=== PATIENT | male | born 1960 | race Caucasian/White ===

== ENCOUNTER 2024-01-13 19:10 | Inpatient (IN) | payer OTHER, MEDICAID ==
[~2024-01-13] VITALS: Ht 182.9 cm; Wt 70.3 kg
[2024-01-13 19:10] VITALS: BP_SYST 145; PULSE 100; RESP 20; TEMP 98.6; O2SAT 95
[2024-01-13] MEDS ORDERED: iohexoL 350 mgI/mL, 100 ML INFUS..BTL IV ONE (19:27)
[2024-01-13 19:52] LABS: BASOPHILS # (AUTO) 0.1 K/uL (0.0-0.2); BASOPHILS % (AUTO) 0.4 % (0.0-2.0); HEMATOCRIT 44.8 % (36-54); HEMOGLOBIN 15.1 g/dL (14.0-18.0); LYMPHOCYTES # (AUTO) 0.6 K/uL (1.0-5.5); LYMPHOCYTES % (AUTO) 2.9 % (20.5-51.5); MEAN CORPUSCULAR HEMOGLOBIN 30 pg (27-31); MEAN CORPUSCULAR HGB CONC 34 % (32-36); MEAN CORPUSCULAR VOLUME 88 fL (79.0-98.0); MONOCYTES # (AUTO) 1.1 K/uL (0.0-1.0); MONOCYTES % (AUTO) 5.6 % (1.7-9.3); NEUTROPHILS # (AUTO) 18.5 K/uL (1.8-7.7); NEUTROPHILS % (AUTO) 91.1 % (40.0-70.0); PLATELET COUNT (AUTO) 375 K/uL (130-430); RED BLOOD CELL COUNT(AUTO) 5.07 MIL/uL (4.2-6.2); RED CELL DISTRIBUTION WIDTH 13.6 % (9.0-15.0); WHITE BLOOD COUNT (AUTO) 20.3 K/uL (4.8-10.8)
[2024-01-13 20:01] LABS: ANION GAP 10 (5-15); CALCIUM 10.9 mg/dL (8.4-11.0); CARBON DIOXIDE 25 mmol/L (23-29); CHLORIDE 103 mmol/L (98-107); CREATININE 2.58 mg/dL (0.55-1.30); GFR AFRICAN AMERICAN 33 mL/min (>90); POTASSIUM 4.1 mmol/L (3.5-5.1); SODIUM SERUM 138 mmol/L (136-145); UREA NITROGEN, BLOOD 45 mg/dL (8-21)
[2024-01-13 20:04] LABS: GFR NON AFRICAN-AMERICAN 27 mL/min (>90)
[2024-01-13 20:05] LABS: GLUCOSE 407 mg/dL (74-106)
[2024-01-13 20:17] LABS: HEMOGLOBIN A1C 9.06 % (<5.7)
[2024-01-13] MEDS: NACL 0.9% 1,000 ML IV ONE ×2 (20:26→21:13)
[2024-01-13 20:35] LABS: CHOLESTEROL 207 mg/dL (<200); HDL CHOLESTEROL 50 mg/dL (>45); TRIGLYCERIDES 94 mg/dL (30-150)
[2024-01-13] MEDS ORDERED: GUAI5LIQ13 (20:51)
[2024-01-13] MEDS ORDERED: SSNOVOLOG SUBCUT (20:51)
[2024-01-13] MEDS ORDERED: INSU300I10 (20:51)
[2024-01-13] MEDS ORDERED: ASPI-1077 PO (20:51)
[2024-01-13] MEDS ORDERED: OLAN5TAB3 PO (20:51)
[2024-01-13] MEDS ORDERED: SER25 PO (20:51)
[2024-01-13] MEDS ORDERED: ZIT250 PO (20:51)
[2024-01-13] MEDS ORDERED: DEPS125 PO (20:51)
[2024-01-13] MEDS ORDERED: INSU100V44 (20:51)
[2024-01-13] MEDS ORDERED: AMIO200T66 PO (20:51)
[2024-01-13] MEDS ORDERED: DOCU-144 PO (20:51)
[2024-01-13] MEDS ORDERED: LEVO150T PO (20:51)
[2024-01-13] MEDS: PIPERACILLIN/TAZO 3.375 GM in NS 50 ML IV ONE (21:11)
[2024-01-13] MEDS ORDERED: PIPERACILLIN/TAZOBACTAM 3.375 GM/VIAL (ZOSYN) IV ONE (21:13)
[2024-01-13 22:10] LABS: BILIRUBIN,URINE 1+ (NEGATIVE); BLOOD, URINE NEGATIVE (NEGATIVE); CLARITY/URINE CLEAR (CLEAR); COLOR,URINE YELLOW (YELLOW); GLUCOSE,URINE 3+ (NEGATIVE); KETONES,URINE 1+ (NEGATIVE); LEUKOCYTE ESTERASE ,URINE NEGATIVE (NEGATIVE); NITRITE, URINE NEGATIVE (NEGATIVE); PROTEIN URINE NEGATIVE (NEGATIVE); UROBILINOGEN,URINE 0.2 (0.2-1.0)
[2024-01-13 22:22] LABS: BARBITURATE, URINE NEGATIVE (NEG <=200); BENZODIAZEPINE, URINE NEGATIVE (NEG <=150); CANNABINOID, URINE NEGATIVE (NEG <=50); COCAINE, URINE NEGATIVE (NEG <=150); METHAMPHETAMINES SCREEN,URINE NEGATIVE (NEG <=500); OPIATE, URINE NEGATIVE (NEG <=100); PHENCYCLIDINE SCREEN,URINE NEGATIVE (NEG <=25); UR TRICYCLIC ANTIDEPRESSANTS POSITIVE (NEG <=300); URINE AMPHETAMINE NEGATIVE (NEG <=500); URINE METHADONE NEGATIVE (NEG <=200); URINE OXYCODONE SCREEN NEGATIVE (NEG <=100)
[2024-01-13] MEDS ORDERED: IPRATROPIUM BROM 0.5 MG/2.5 ML VIAL.NEB (ATROVENT) INH PRN (22:45)
[2024-01-13] MEDS ORDERED: LORazepam 2 MG/ML VIAL IVP PRN (22:45)
[2024-01-13] MEDS ORDERED: ALBUTEROL SULFATE 0.083% 2.5 MG/3 ML VIAL.NEB INH PRN (22:45)
[2024-01-13] MEDS ORDERED: ACETAMINOPHEN 325 MG TABLET PO PRN (22:45)
[2024-01-13] MEDS ORDERED: DEXTROSE 50% JECT 50 ML DISP.SYRIN IVP PRN (22:45)
[2024-01-13] MEDS ORDERED: HYDROcodone/ACETAMIN 10-325 MG TAB PO PRN (22:45)
[2024-01-13] MEDS ORDERED: HYDROcodone/ACETAMIN 5-325 MG TAB (NORCO/ VICODIN) PO PRN (22:45)
[2024-01-13] MEDS ORDERED: INSULIN GLARGINE 100 UNITS/ML, 10 ML VIAL SUBCUT ONE (23:00)
[2024-01-13] MEDS ORDERED: MORPHINE 2 MG/ML INJ. SYRINGE IVP PRN (23:00)
[2024-01-13] MEDS: ATORVASTATIN 20 MG TABLET PO SCH (23:00)
[2024-01-13] MEDS: QUEtiapine FUMARATE 25 MG TABLET PO SCH (23:00)
[2024-01-13 23:07] LABS: BACTERIA,URINE FEW /HPF (None Seen); RBC,URINE NONE SEEN /HPF (0-3); WBC,URINE 0-3 /HPF (0-3)
[2024-01-13 23:08] LABS: CALCIUM OXALATE CRYSTALS,UR 0-10 /HPF (None Seen); MUCUS,URINE 1+ /LPF (None Seen)
[2024-01-14] MEDS: 0.45% NACL 1,000 ML IV SCH (03:08)
[2024-01-14] MEDS ORDERED: INSULIN GLARGINE 100 UNITS/ML, 10 ML VIAL ONE (03:09)
[2024-01-14 03:31] VITALS: BP_SYST 120; PULSE 85; O2SAT 95
[2024-01-14] MEDS: INSULIN GLARGINE 100 UNITS/ML, 10 ML VIAL SUBCUT ONE (03:56)
[2024-01-14 06:37] LABS: BASOPHILS % (AUTO) 0.1 % (0.0-2.0); HEMATOCRIT 36.9 % (36-54); HEMOGLOBIN 12.3 g/dL (14.0-18.0); LYMPHOCYTES # (AUTO) 0.9 K/uL (1.0-5.5); LYMPHOCYTES % (AUTO) 4.1 % (20.5-51.5); MEAN CORPUSCULAR HEMOGLOBIN 30 pg (27-31); MEAN CORPUSCULAR HGB CONC 33 % (32-36); MEAN CORPUSCULAR VOLUME 89 fL (79.0-98.0); MONOCYTES # (AUTO) 0.8 K/uL (0.0-1.0); MONOCYTES % (AUTO) 3.9 % (1.7-9.3); NEUTROPHILS % (AUTO) 91.9 % (40.0-70.0); PLATELET COUNT (AUTO) 337 K/uL (130-430); RED BLOOD CELL COUNT(AUTO) 4.13 MIL/uL (4.2-6.2); RED CELL DISTRIBUTION WIDTH 13.6 % (9.0-15.0); WHITE BLOOD COUNT (AUTO) 21.8 K/uL (4.8-10.8)
[2024-01-14] MEDS ORDERED: INSULIN Lispro 100 UNITS/ML, 3 ML VIAL (humaLOG) ONE (06:48)
[2024-01-14] MEDS: INSULIN LISPRO SLIDING SCALE 100 UNITS/ML, 3 ML VIAL (humaLOG) SUBCUT PRN (06:50)
[2024-01-14 06:54] LABS: ALBUMIN 3.1 g/dL (3.4-4.8); CALCIUM 9.6 mg/dL (8.4-11.0); CREATININE 1.79 mg/dL (0.55-1.30); POTASSIUM 4.3 mmol/L (3.5-5.1); THYROID STIMULATING HORMONE 1.77 uIu/mL (0.36-3.74); TOTAL BILIRUBIN 0.3 mg/dL (0.0-1.0); TOTAL PROTEIN, SERUM 7.3 g/dL (6.4-8.3)
[2024-01-14] MEDS: DIVALPROEX SODIUM 125 MG CAP.(DEPAKOTE SPRINKLE) GT SCH (09:00)
[2024-01-14] MEDS: OLANZapine 5 MG TABLET PO SCH (09:00)
[2024-01-14] MEDS ORDERED: cefTRIAXone 2 GM VIAL ONE (10:54)
[2024-01-14] MEDS: ASPIRIN 81 MG TAB.CHEW PO SCH (10:56)
[2024-01-14] MEDS: DOCUSATE SODIUM 100 MG CAPSULE PO SCH (10:56)
[2024-01-14] MEDS: AMIODARONE HCL 200 MG TABLET PO SCH (10:57)
[2024-01-14] MEDS: HEPARIN SODIUM,PORCINE 5,000 UNITS/ML VIAL SUBCUT SCH (10:59)
[2024-01-14 12:14] VITALS: BP_SYST 138; PULSE 70; RESP 18; TEMP 98.8; O2SAT 98
[2024-01-14 16:35] VITALS: BP_SYST 144; PULSE 63; RESP 18; O2SAT 96
[2024-01-14] MEDS: ONDANSETRON HCL 4 MG/2 ML VIAL IVP PRN (17:54)
[2024-01-14 20:00] VITALS: BP_SYST 122; PULSE 61; RESP 16; TEMP 97.4; O2SAT 100
[2024-01-14] MEDS ORDERED: INSULIN GLARGINE 100 UNITS/ML, 10 ML VIAL SUBCUT SCH (21:00)
[2024-01-14] MEDS: CEFEPIME 1 GM in D5W 50 ML IV SCH (21:58)
[2024-01-15] VITALS (7 sets, daily range): BP systolic 106–147; PULSE 52–60; RESP 15–18; TEMP 97.3–98.5; O2SAT 93–97
[2024-01-15] MEDS: LEVOTHYROXINE SODIUM 0.15 MG TABLET PO SCH (06:37)
[2024-01-15 07:13] LABS: BASOPHILS # (AUTO) 0.1 K/uL (0.0-0.2); BASOPHILS % (AUTO) 0.5 % (0.0-2.0); EOSINOPHILS # (AUTO) 0.1 K/uL (0.0-0.4); EOSINOPHILS % (AUTO) 0.5 % (0.0-4.0); HEMATOCRIT 35.7 % (36-54); HEMOGLOBIN 11.8 g/dL (14.0-18.0); LYMPHOCYTES # (AUTO) 2.1 K/uL (1.0-5.5); LYMPHOCYTES % (AUTO) 17.1 % (20.5-51.5); MEAN CORPUSCULAR HEMOGLOBIN 30 pg (27-31); MEAN CORPUSCULAR HGB CONC 33 % (32-36); MEAN CORPUSCULAR VOLUME 90 fL (79.0-98.0); MONOCYTES # (AUTO) 0.5 K/uL (0.0-1.0); MONOCYTES % (AUTO) 4.1 % (1.7-9.3); NEUTROPHILS # (AUTO) 9.6 K/uL (1.8-7.7); NEUTROPHILS % (AUTO) 77.8 % (40.0-70.0); PLATELET COUNT (AUTO) 296 K/uL (130-430); RED BLOOD CELL COUNT(AUTO) 3.99 MIL/uL (4.2-6.2); RED CELL DISTRIBUTION WIDTH 13.7 % (9.0-15.0); WHITE BLOOD COUNT (AUTO) 12.3 K/uL (4.8-10.8)
[2024-01-15 08:14] LABS: CALCIUM 9.6 mg/dL (8.4-11.0); CREATININE 1.1 mg/dL (0.55-1.30); POTASSIUM 3.9 mmol/L (3.5-5.1)
[2024-01-15] MEDS: MINERAL OIL 133 ML ENEMA RC ONE (17:10)
[2024-01-15] MEDS ORDERED: HYDROmorphone 2 MG/ML VIAL ONE (17:37)
[2024-01-16 00:21] VITALS: BP_SYST 128; PULSE 47; RESP 20; TEMP 98.3; O2SAT 94
[2024-01-16 06:13] LABS: BASOPHILS # (AUTO) 0.1 K/uL (0.0-0.2); EOSINOPHILS % (AUTO) 0.8 % (0.0-4.0); HEMATOCRIT 33.6 % (36-54); HEMOGLOBIN 11.3 g/dL (14.0-18.0); LYMPHOCYTES # (AUTO) 1.8 K/uL (1.0-5.5); LYMPHOCYTES % (AUTO) 28.8 % (20.5-51.5); MEAN CORPUSCULAR HEMOGLOBIN 30 pg (27-31); MEAN CORPUSCULAR HGB CONC 34 % (32-36); MEAN CORPUSCULAR VOLUME 90 fL (79.0-98.0); MONOCYTES # (AUTO) 0.3 K/uL (0.0-1.0); MONOCYTES % (AUTO) 5.3 % (1.7-9.3); NEUTROPHILS # (AUTO) 3.9 K/uL (1.8-7.7); NEUTROPHILS % (AUTO) 64.1 % (40.0-70.0); PLATELET COUNT (AUTO) 247 K/uL (130-430); RED BLOOD CELL COUNT(AUTO) 3.75 MIL/uL (4.2-6.2); RED CELL DISTRIBUTION WIDTH 13.6 % (9.0-15.0); WHITE BLOOD COUNT (AUTO) 6.1 K/uL (4.8-10.8)
[2024-01-16 06:25] LABS: CALCIUM 8.9 mg/dL (8.4-11.0); CREATININE 0.88 mg/dL (0.55-1.30); POTASSIUM 4.1 mmol/L (3.5-5.1)
[2024-01-16] MEDS: POLYETHYLENE GLYCOL 3350, 17 GM/ POWD.PACK PO SCH (08:44)
[2024-01-16 08:52] VITALS: BP_SYST 140; PULSE 63; RESP 16; TEMP 96.9; O2SAT 93
[2024-01-16] MEDS ORDERED: INSU100V9 SQ ×2 (11:42→12:49)
[2024-01-16] MEDS ORDERED: LEVO750T64 PO (11:42)
[2024-01-16] MEDS: INSULIN GLARGINE 100 UNITS/ML, 10 ML VIAL SUBCUT ONE (12:29)
[2024-01-16] MEDS: INSULIN Lispro 100 UNITS/ML, 3 ML VIAL (humaLOG) SUBCUT ONE ×2 (12:46→14:11)
[2024-01-16 17:56] VITALS: BP_SYST 106; PULSE 75; RESP 17; TEMP 97.8; O2SAT 97
[2024-01-16] MEDS: INSULIN Lispro 100 UNITS/ML, 3 ML VIAL (humaLOG) SUBCUT SCH (18:08)
[2024-01-16] MEDS: INSULIN GLARGINE 100 UNITS/ML, 10 ML VIAL SUBCUT SCH (20:14)
[2024-01-16 20:30] VITALS: BP_SYST 115; PULSE 54; TEMP 98; O2SAT 94
[2024-01-17] MEDS ORDERED: INSULIN GLARGINE 100 UNITS/ML, 10 ML VIAL SUBCUT SCH (09:00)
== END 2024-01-16 21:50 | DRG 871 ==
LOC: SED 19:10 → STU 22:44
PROVIDERS: ADMIT Internal Medicine; ATTEND Internal Medicine
DX: A41.9 Sepsis, unspecified organism (principal); G93.41 Metabolic encephalopathy; J18.9 Pneumonia, unspecified organism; J69.0 Pneumonitis due to inhalation of food and vomit; N17.9 Acute kidney failure, unspecified; I69.351 Hemiplegia and hemiparesis following cerebral infarction affecting right dominant side; E87.0 Hyperosmolality and hypernatremia; J44.0 Chronic obstructive pulmonary disease with (acute) lower respiratory infection; E86.0 Dehydration; I48.91 Unspecified atrial fibrillation; I25.10 Atherosclerotic heart disease of native coronary artery without angina pectoris; R13.10 Dysphagia, unspecified; E11.65 Type 2 diabetes mellitus with hyperglycemia; E78.00 Pure hypercholesterolemia, unspecified; E03.9 Hypothyroidism, unspecified; E78.5 Hyperlipidemia, unspecified; I65.01 Occlusion and stenosis of right vertebral artery; K59.00 Constipation, unspecified; F03.90 Unspecified dementia, unspecified severity, without behavioral disturbance, psychotic disturbance, mood disturbance, and anxiety; Z79.4 Long term (current) use of insulin; Z86.711 Personal history of pulmonary embolism; R29.726 NIHSS score 26
CPT/HCPCS: 36415; 70450; 70496; 70498; 70551; 71045; 76770; 80048; 80053; 80061; 80307; 81000; 81001; 81015; 82140; 82948; 83037; 83605; 84443; 84484; 85025; 85610; 85730; 86886; 86900; 86901; 87040; 87081; 92610-GN; 93005; 93306; 94760; 95816; 96365; 99291; G0378; J0692; J0696; J1170; J1644; J1815; J2405; J2543; J7060; Q9967